=== PATIENT | male | born 1955 | race Caucasian/White ===

== ENCOUNTER 2022-08-09 02:54 | Inpatient (IN) | payer OTHER, MEDICAID ==
[~2022-08-09] VITALS: Ht 188 cm; Wt 86.2 kg
--- NOTE | 2022-08-09 02:55 | NUR ---
SEAN BEARDS TO BED #9
[2022-08-09 03:03] VITALS: BP 110/70
--- NOTE | 2022-08-09 03:08 | NUR ---
Pt SEAN S Care run #[id number], coming from home due to c/o upper body pain 06/05 that started today. Pt states he ran out of his oxycodone medication. No trauma. Pain started abruptly. Pt is A&Ox4. Skin intact. VSS. pupils PERRLA. No sob. Denies n/v. Has hx of Cancer and Hypothyroidism. Uses wheelchair at home. Bed in lowest position.
--- NOTE | 2022-08-09 03:15 | NUR ---
Dr. Tobar at bedside examining pt.
[2022-08-09] MEDS ORDERED: HYDROmorphone PFS 2 MG/ML SYR IVP ONE (03:25)
--- NOTE | 2022-08-09 03:30 | NUR ---
[address]
--- NOTE | 2022-08-09 03:48 | NUR ---
#20g IV placed on right wrist with no infiltration noted. 10cc flushed. Saline lock.
--- NOTE | 2022-08-09 03:48 | NUR ---
Covid swab done and blood work collected. Sent to lab.
[2022-08-09 03:57] LABS: BASOPHILS # (AUTO) 0.1 K/uL (0.00-0.22); BASOPHILS % (AUTO) 0.6 % (0.0-2.0); EOSINOPHILS # (AUTO) 0.2 K/uL (0-0.4); EOSINOPHILS % (AUTO) 2.5 % (0.0-4.0); HEMATOCRIT 34.9 % (36-52); HEMOGLOBIN 11.3 g/dL (12.0-18.0); LYMPHOCYTES # (AUTO) 0.7 K/uL (2.0-11.5); LYMPHOCYTES % (AUTO) 8.4 % (20.5-51.1); MEAN CORPUSCULAR HEMOGLOBIN 25 pg (27-31); MEAN CORPUSCULAR HGB CONC 32 g/dL (33-37); MEAN CORPUSCULAR VOLUME 77.6 fL (80-94); MONOCYTES # (AUTO) 0.7 K/uL (0.8-1.0); MONOCYTES % (AUTO) 7.7 % (1.7-9.3); NEUTROPHILS # (AUTO) 6.8 K/uL (1.8-7.7); NEUTROPHILS % (AUTO) 80.8 % (42.2-75.2); PLATELET COUNT (AUTO) 519 K/uL (140-450); RED BLOOD CELL COUNT(AUTO) 4.49 MIL/uL (4.20-6.10); RED CELL DISTRIBUTION WIDTH 17.8 % (11.6-13.7); WHITE BLOOD COUNT (AUTO) 8.4 K/uL (4.8-10.8)
[2022-08-09 04:26] LABS: ALBUMIN 2.8 g/dL (3.4-5.0); ANION GAP 13.1 (8-16); CARBON DIOXIDE 24.9 mmol/L (21-32); CREATININE 0.7 mg/dL (0.6-1.3); TOTAL BILIRUBIN 0.7 mg/dL (0.0-1.0)
--- NOTE | 2022-08-09 04:39 | NUR ---
Pt in bed resting with no s/s of distress. Pt states he has no more pain at the moment. A&Ox4. VSS.
[2022-08-09] MEDS ORDERED: MONT10TA35 PO (07:15)
[2022-08-09] MEDS ORDERED: LEVO25CA2 PO (07:15)
[2022-08-09] MEDS ORDERED: METH1TAB PO (07:15)
[2022-08-09] MEDS ORDERED: DEC4 PO (07:15)
[2022-08-09] MEDS ORDERED: ACYC400T14 PO (07:15)
[2022-08-09] MEDS ORDERED: FLUO10CA21 PO (07:15)
[2022-08-09] MEDS ORDERED: GABA100C PO (07:15)
--- NOTE | 2022-08-09 07:15 | NUR ---
Medication Reconciliation completed provided by family.
--- NOTE | 2022-08-09 07:16 | NUR ---
Received report from TAM Herr. Assumed care at this time.
[2022-08-09] MEDS ORDERED: ACETAMINOPHEN 325 MG TAB PO PRN (10:00)
[2022-08-09] MEDS ORDERED: ZOLPIDEM 5 MG TAB PO PRN (10:00)
[2022-08-09] MEDS ORDERED: DOCUSATE SODIUM 100 MG GELCAP PO PRN (10:00)
[2022-08-09] MEDS ORDERED: guaiFENesin DM 200/20 MG-10 ML 10 ML UDC PO PRN (10:00)
[2022-08-09] MEDS ORDERED: POTASSIUM CHLORIDE 10 MEQ TABER PO PRN (10:00)
[2022-08-09] MEDS ORDERED: ONDANSETRON 4 MG/2 ML VIAL IM/IVP PRN (10:00)
--- NOTE | 2022-08-09 10:07 | NUR ---
Patient will be admitted to care of DR VALENTINE. Admited to Med/Surg. Will go to room 105B. Belongings list completed. Report to TAM LANDAVERDE.
[2022-08-09 10:25] VITALS: BP 136/73
--- NOTE | 2022-08-09 10:25 | NUR ---
RECEIVED PT FROM MEAT STOCKER, PT IS AWAKE, ALERT AND ORIENTED, IV LINE NOTED ON THE RIGHT HAND G. 20 ON SALINE LOCK, PT IS ON O2 2L NC, SUPRAPUBIC CATHETER AND COLOSTOMY WERE IN PLACE, NO SIGN OF DISTRESS NOTED AND WILL CONTINUE TO MONITOR PT.
--- NOTE | 2022-08-09 10:40 | NUR ---
MRSA SWAB DONE TO PT NOW AND SAMPLE WAS SENT TO LAB
--- NOTE | 2022-08-09 11:00 | NUR ---
RIGHT UPPER CHEST PORT-A-CATH IS IN PLACE.
[2022-08-09] MEDS: DEXT 5% /NACL 0.9% 1,000 ML IV SCH ×3 (11:04→23:20)
[2022-08-09 11:22] LABS: PROTHROMBIN TIME 12.2 secs (10.8-13.4)
[2022-08-09 11:28] LABS: AMYLASE 37 U/L (25-115); CHOL/HDL RATIO 5.4 (1-4.5); HDL CHOLESTEROL 37 mg/dL (40-60); LDL (CALC) 132 mg/dL (60-100); LIPASE 48 U/L (73-393); MAGNESIUM 1.8 mg/dL (1.8-2.4); PHOSPHORUS 3.1 mg/dL (2.5-4.9); THYROID STIMULATING HORMONE 3.64 uIU/mL (0.34-3.74); TRIGLYCERIDES 147 mg/dL (30-150)
[2022-08-09] MEDS: MORPHINE SULFATE 2 MG/ML SYR IVP PRN ×2 (11:40→18:29)
--- NOTE | 2022-08-09 14:00 | NUR ---
PT IS RESTING NOW, NO SIGN OF DISTRESS NOTED.
[2022-08-09] MEDS: HYDROcodone/APAP 7.5/325 MG 1 TAB PO PRN ×2 (15:38→22:29)
--- NOTE | 2022-08-09 18:29 | NUR ---
PT WAS MEDICATED NOW FOR A PAIN RATE OF 9/10
--- NOTE | 2022-08-09 19:28 | NUR ---
ENDORSED PT TO NIGHT RN FOR CONTINUITY OF CARE, PT IS STABLE AT THIS TIME.
--- NOTE | 2022-08-09 19:30 | NUR ---
RECEIVED REPORT FROM DAY SHIFT NURSE VINNIE FOR CONTINUITY OF CARE. PATIENT IS A&O X4. PATIENT IS ON NC 3L. PATIENT'S IV IS A 20G RIGHT HAND; RUNNING D5NS 150. PATIENT IS SLEEPING, SITTING IN HIGH-FOWLERS POSITION. BED IS IN LOWEST POSITION, WHEELS LOCKED, CALL LIGHT IN PLACE. WILL CONTINUE TO OBSERVE PATIENT.
[2022-08-09 20:00] VITALS: BP 127/79
--- NOTE | 2022-08-09 22:35 | NUR ---
PATIENT CALLED AND REQUESTED NORCO FOR 6/10 PAIN. CHECKED PATIENT'S CHART, NORCO IS APPROPRIATE TO ADMINISTER. ADMINISTERED MEDICATION TO PATIENT. PATIENT TOLERATED WELL AND THANKED ME FOR THE MEDICATION. WILL CONTINUE TO OBSERVE PATIENT.
--- NOTE | 2022-08-10 00:30 | NUR ---
LOOKED IN ON PATIENT. PATIENT WAS SLEEPING, LYING IN HIGH-FOWLERS POSITION. BREATHING WAS NORMAL WITH SYMMETRICAL RISE AND FALL OF CHEST. WILL CONTINUE TO OBSERVE PATIENT.
[2022-08-10] MEDS: MORPHINE SULFATE 2 MG/ML SYR IVP PRN (01:57)
--- NOTE | 2022-08-10 02:00 | NUR ---
PATIENT CALLED AND REQUESTED MORPHINE FOR 9/10 PAIN. OBTAINED PATIENT'S VITALS: BP WAS 141/84, HR 89. CHECKED PATIENT'S CHART; MORPHINE WAS APPROPRIATE TO ADMINISTER. ADMINISTERED MEDICATION, PATIENT TOLERATED WELL. CHECKED PATIENT'S CATHETER BAG (SMALL BAG STRAPPED TO HIS RIGHT LEG); EMPTIED BAG OF 500 ML OF URINE. PATIENT TOLERATED WELL. WILL CONTINUE TO OBSERVE PATIENT.
[2022-08-10 04:00] VITALS: BP 138/97
--- NOTE | 2022-08-10 04:10 | NUR ---
CHANGED OUT PATIENT'S CATHETER BAG STRAPPED TO HIS RIGHT LEG TO A BIG CATHETER BAG HANGING AT PATIENT'S BEDSIDE BELOW PATIENT. CHANGED OUT PATIENT'S COLOSTOMY BAG. OLD COLOSTOMY BAG HAD SOLID, HARD STOOL. PATIENT TOLERATED CHANGE WELL. OLD CATHETER BAG AND OLD COLOSTOMY BAG WERE PLACE IN BIOHAZARD BAG. PATIENT'S BREATHING IS NORMAL WITH SYMMETRICAL RISE AND FALL OF CHEST. WILL CONTINUE TO OBSERVE PATIENT.
[2022-08-10] MEDS: HYDROcodone/APAP 7.5/325 MG 1 TAB PO PRN ×5 (04:52→21:10)
--- NOTE | 2022-08-10 05:00 | NUR ---
PATIENT CALLED AND REQUESTED NORCO FOR PATIENT. PATIENT'S BP WAS 138/97 AND HR WAS 90. CHECKED CHART, NORCO WAS APPROPRIATE TO ADMINISTER. ADMINISTERED NORCO TO PATIENT. PATIENT TOLERATED WELL. PATIENT'S BREATHING IS NORMAL WITH SYMMETRICAL RISE AND FALL OF CHEST. IV IS RUNNING D5NS AT 150. WILL CONTINUE TO OBSERVE PATIENT.
[2022-08-10] MEDS: DEXT 5% /NACL 0.9% 1,000 ML IV SCH ×4 (06:00→23:22)
[2022-08-10 06:36] LABS: BASOPHILS % (AUTO) 0.2 % (0.0-2.0); EOSINOPHILS # (AUTO) 0.2 K/uL (0-0.4); HEMATOCRIT 35.3 % (36-52); HEMOGLOBIN 11.4 g/dL (12.0-18.0); LYMPHOCYTES # (AUTO) 0.6 K/uL (2.0-11.5); LYMPHOCYTES % (AUTO) 7.4 % (20.5-51.1); MEAN CORPUSCULAR HEMOGLOBIN 25 pg (27-31); MEAN CORPUSCULAR HGB CONC 32 g/dL (33-37); MEAN CORPUSCULAR VOLUME 77.5 fL (80-94); MONOCYTES # (AUTO) 0.5 K/uL (0.8-1.0); MONOCYTES % (AUTO) 6.6 % (1.7-9.3); NEUTROPHILS # (AUTO) 6.4 K/uL (1.8-7.7); NEUTROPHILS % (AUTO) 83.8 % (42.2-75.2); PLATELET COUNT (AUTO) 515 K/uL (140-450); RED BLOOD CELL COUNT(AUTO) 4.56 MIL/uL (4.20-6.10); RED CELL DISTRIBUTION WIDTH 17.7 % (11.6-13.7); WHITE BLOOD COUNT (AUTO) 7.6 K/uL (4.8-10.8)
--- NOTE | 2022-08-10 07:00 | NUR ---
OBTAINED URINE SAMPLE FROM PATIENT FOR URINE ANALYSIS. PATIENT'S BREATHING IS NORMAL WITH SYMMETRICAL RISE AND FALL OF CHEST. WILL CONTINUE TO OBSERVE PATIENT.
--- NOTE | 2022-08-10 07:11 | NUR ---
ASSUMED CONTINUITY OF CARE. A & O X4. WATCHING TV AT THIS TIME. KEEP COMFORTABLE ON BED. EXPLAINED DIAGNOSIS, PLAN OF CARE, PAIN MANAGEMENT TEACHING, USE OF CALL LIGHT/BED/TV/BATHROOM. VERBALIZED UNDERSTANDING. FALL PRECAUTION APPLIED. CALL LIGHT WITHIN REACH.
[2022-08-10 07:26] LABS: ANION GAP 13.8 (8-16); CARBON DIOXIDE 24.1 mmol/L (21-32); CREATININE 0.6 mg/dL (0.6-1.3); POTASSIUM 3.9 mmol/L (3.5-5.1)
--- NOTE | 2022-08-10 07:30 | NUR ---
ENDORSED TO DAY SHIFT NURSE TAMIKA FOR CONTINUITY OF CARE. PATIENT IS STABLE.
[2022-08-10 07:50] LABS: APPEARANCE,URINE CLEAR (CLEAR); BILIRUBIN,URINE NEGATIVE (NEGATIVE); BLOOD, URINE 3+ (NEGATIVE); COLOR,URINE YELLOW (YELLOW); LEUKOCYTE ESTERASE ,URINE 1+ (NEGATIVE); NITRITE, URINE POSITIVE (NEGATIVE); UGLUCOSE NEGATIVE (NEGATIVE)
[2022-08-10 08:00] VITALS: BP 139/89
[2022-08-10 08:07] LABS: T4 (THYROXINE) 7.9 ug/dL (4.5-12.0)
[2022-08-10 08:12] LABS: RBC,URINE 50-80 /HPF (0-5); WBC,URINE 60-80 /HPF (0-5)
--- NOTE | 2022-08-10 08:54 | NUR ---
GUERO COLLIER CAME AND SPOKE TO PT. AT BEDSIDE.
[2022-08-10] MEDS: PANTOPRAZOLE 40 MG TABEC PO SCH (08:55)
--- NOTE | 2022-08-10 10:56 | NUR ---
Patient's Plan of Care was discussed and reviewed with C PROGRAMMER:
--- NOTE | 2022-08-10 11:00 | NUR ---
INSERTED NEW IV ACCESS ON RIGHT HAND GAUGE #22. TOLERATED WELL. D/C IV ON RIGHT WRIST GAUGE #22.
--- NOTE | 2022-08-10 11:08 | NUR ---
PATIENT HAS BEEN SCREENED AND CATEGORIZED MODERATE NUTRITION RISK. PATIENT WILL BE SEEN WITHIN 3-5 DAYS OF ADMISSION. 08/12/2212/19/[address] BY PAYAM REED RD
--- NOTE | 2022-08-10 13:07 | NUR ---
MEDICATED PT WITH PRN NORCO FOR ABDOMINAL PAIN 03/05. PT REFUSED MORPHINE STATING IT DOES NOT WORK WELL.
--- NOTE | 2022-08-10 15:11 | NUR ---
DISCHARGE PLANNING: PATIENT IS A 67 YEAR OLD MALE ADMITTED TO THE [facility]/ED ON 08/09/2022 DUE TO INTRACTABLE PAIN. SW MEET WITH PATIENT AT BEDSIDE TO DISCUSS AND GATHER HIS COLLATERAL INFORMATION DURING THE MEETING PATIENT WAS AWAKE AND ALERT ABLE TO PROVIDE ALL HIS INFORMATION. PATIENT REPORTED LIVING WITH HIS MOTHER AT HER HOME IN [facility]. PER PATIENT HE HAS ADVANCE DIRECTIVES IN PLACE WITH HIS SISTER MORE HIS EMERGENCY CONTACT AND MEDICAL DECISION MAKER. THEREFORE; PATIENT DECLINED INF. FORMS PROVIDED BY [facility]. PER PATIENT HE HAS PCP DR. PEPE CHACON WITH WHO HE HAS A GOOD RELATIONSHIP. PATIENT REPORTED THAT HIS LAS VISIT WITH PCP WAS ABOUT 2 MONTHS AND HE WILL MAKE HIS OWN APPOINTMENT WHEN HE IS READY AND STABLE TO DISCHARGED. PATIENT REPORTED THAT HE HAS NO ISSUES GETTING OR TAKING MEDICATIONS; REPORTED THAT HE HAS THE [facility] IN [facility] IN [facility]. SEND HIS AND HIS MOTHER'S MEDICATIONS TO THE HOME. PER PATIENT HE HAS A CANE, A WALKER, A LIFT, WHEELCHAIR AND 02 HIS DME AT HOME FOR HIM AND HIS ALMOST 100YEAR OLD MOTHER. PER PATIENT HE HAS A PRIVATE CAREGIVER THAT IS PAYING TO COME AND ASSIST THEM WITH THEIR NEEDS. PER PATIENT HAS ALREADY APPLY TO [facility] AND IS WAITING ON HIS PENDING APPLICATION TO SEE IF THEY CAN GET ANOTHER CAREGIVER TO ASSIST THEM AT HOME WITH HIS MOTHER. PER PATIENT HE WANTS TO GO BACK HOME WHEN HE IS READY AND STABLE TO DISCHARGE. PER PATIENT HE WANTS TO GO HOME BUT IS OPEN FOR MD RECOMMENDATIONS IF IS TO SNF PATIENT PREFERS TO GO TO [facility] AND [facility]. SW THANKED PATIENT FOR HIS INFORMATION. MANDY/CM WILL FOLLOW UP NEEDED.
[2022-08-10 16:00] VITALS: BP 143/82
--- NOTE | 2022-08-10 19:10 | NUR ---
BEDSIDE REPORT GIVEN TO NIGHTSHIFT NURSE. IN STABLE CONDITION.
--- NOTE | 2022-08-10 19:15 | NUR ---
RECEIVED REPORT FROM DAY NURSE FOR CONTINUITY OF CARE. RECEIVED PATIENT LYING ON THE BED, IS ALERT AND ORIENTED. CALL LIGHT WITHIN REACH.
--- NOTE | 2022-08-10 21:10 | NUR ---
PATIENT C/O 6/10 GENERALIZED PAIN, PRN PAIN MEDICATION GIVEN ORDERED. CALL LIGHT WITHIN REACH. WILL CONTINUE TO MONITOR THE PATIENT.
--- NOTE | 2022-08-10 21:19 | NUR ---
PATIENT IS ON 3LPM NC, NO SIGNS OF DISTRESS NOTED, PATIENT HAS SUPRA PUBIC CATHETER DRAINING YELLOW COLORED URINE TO BAG, PATIENT HAS COLOSTOMY ON LLQ, BAG EMPTY AT THIS TIME. CALL LIGHT WITHIN REACH. BED IN LOW AND LOCKED POSITION.
--- NOTE | 2022-08-10 22:10 | NUR ---
REASSESSED PATIENT AFTER GIVEN PRN PAIN MEDICATION, PATIENT STATED 3/10 PAIN FROM 6/10 PAIN. PATIENT HAS RIGHT HAND G22 IV ACCESS SITE, RUNNING D5 AND NS 0.9% @150ML/HR, LINE PATENT. CALL LIGHT WITHIN REACH. WILL CONTINUE TO MONITOR THE PATIENT.
[2022-08-11] MEDS: MORPHINE SULFATE 2 MG/ML SYR IVP PRN (01:34)
--- NOTE | 2022-08-11 01:34 | NUR ---
PATIENT C/O 9/10 GENERALIZED PAIN, BP 137/75, GIVEN PRN MORPHINE ORDERED.
[2022-08-11 04:00] VITALS: BP 144/80
--- NOTE | 2022-08-11 04:10 | NUR ---
PATIENT IS AWAKE, NO C/O PAIN AT THIS TIME, ON O2 @3LPM NC, NO SIGNS OF DISTRESS NOTED. VITALS T 97.1, P 81, BP 144/80, RESP 18 AND O2 KYLE 97% ON 3LPM NC. SUPRAPUBIC CATHETER HAS 850ML OUTPUT OF YELLOW URINE, COLOSTOMY BAG EMPTY AT THIS TIME. CALL LIGHT IS WITHIN REACH, SAFETY PRECAUTIONS IN PLACE. WILL CONTINUE TO MONITOR THE PATIENT.
[2022-08-11] MEDS: HYDROcodone/APAP 7.5/325 MG 1 TAB PO PRN ×2 (05:43→11:53)
--- NOTE | 2022-08-11 05:43 | NUR ---
PATIENT C/O 6/10 GENERALIZED PAIN, GIVEN NORCO 7.5/325MG ORDERED. NEEDS ATTENDED THROUGHOUT THE SHIFT. CALL LIGHT WITHIN REACH. SAFETY PRECAUTIONS IN PLACE.
[2022-08-11 07:20] LABS: BASOPHILS % (AUTO) 0.4 % (0.0-2.0); EOSINOPHILS # (AUTO) 0.2 K/uL (0-0.4); EOSINOPHILS % (AUTO) 2.6 % (0.0-4.0); HEMATOCRIT 31.4 % (36-52); HEMOGLOBIN 10.1 g/dL (12.0-18.0); LYMPHOCYTES # (AUTO) 0.6 K/uL (2.0-11.5); LYMPHOCYTES % (AUTO) 7.9 % (20.5-51.1); MEAN CORPUSCULAR HEMOGLOBIN 25 pg (27-31); MEAN CORPUSCULAR HGB CONC 32 g/dL (33-37); MEAN CORPUSCULAR VOLUME 77.9 fL (80-94); MONOCYTES # (AUTO) 0.6 K/uL (0.8-1.0); NEUTROPHILS # (AUTO) 5.6 K/uL (1.8-7.7); NEUTROPHILS % (AUTO) 80.1 % (42.2-75.2); PLATELET COUNT (AUTO) 466 K/uL (140-450); RED BLOOD CELL COUNT(AUTO) 4.04 MIL/uL (4.20-6.10); RED CELL DISTRIBUTION WIDTH 17.2 % (11.6-13.7); WHITE BLOOD COUNT (AUTO) 6.9 K/uL (4.8-10.8)
--- NOTE | 2022-08-11 07:21 | NUR ---
ENDORSED PATIENT TO DAY NURSE FOR CONTINUITY OF CARE. PATIENT IS STABLE.
--- NOTE | 2022-08-11 07:22 | NUR ---
RECEIVED REPORT FROM VENDING MACHINE COIN COLLECTOR NURSE GERDA FOR CONTINUITY OF CARE. PT SLEEPING, EASILY AROUSABLE BY VERBAL STIMULI. RESPIRATIONS EVEN AND UNLABORED ON 3L NC. WITH COLOSTOMY BAG ON LLQ, INTACT. WITH SUPRAPUBIC CATHETER, INTACT AND DRAINING URINE WELL. IV SITE ON RIGHT HAND G22, INFUSING IVF. CALL LIGHT WITHIN REACH. SAFETY PRECAUTIONS IN PLACE.
[2022-08-11] MEDS: DEXT 5% /NACL 0.9% 1,000 ML IV SCH ×2 (07:26→15:20)
--- NOTE | 2022-08-11 07:30 | NUR ---
POC DISCUSSED WITH TAM LWE.
[2022-08-11] MEDS ORDERED: CEPH-588 PO (07:59)
[2022-08-11] MEDS ORDERED: ACET-512 PO (07:59)
[2022-08-11 08:01] LABS: ANION GAP 12.3 (8-16); CARBON DIOXIDE 23.6 mmol/L (21-32); CREATININE 0.5 mg/dL (0.6-1.3); POTASSIUM 3.9 mmol/L (3.5-5.1)
[2022-08-11] MEDS: PANTOPRAZOLE 40 MG TABEC PO SCH (08:42)
--- NOTE | 2022-08-11 08:46 | NUR ---
ADMINISTERED DUE MEDS. PT TEACHING ABOUT MEDS GIVEN. PT VERBALIZED UNDERSTANDING.
--- NOTE | 2022-08-11 09:52 | NUR ---
PT WAS FED BY THE LINEN WORKER AND PER LINEN WORKER PT VOMITED. PT REQUESTED FOR N&V MED. PRN IVP MED ADMINISTERED BY TAM LEW.
--- NOTE | 2022-08-11 10:32 | NUR ---
DC PAPERS DISCUSSED WITH THE PT. INFORMED PT THAT PER MD NOTES, HE HAS AN APPT WITH [facility] WITH HIS ONCOLOGIST. PT STATED HE'LL CALL SOMEBODY TO HIM UP.
[2022-08-11 10:39] VITALS: BP 140/78
--- NOTE | 2022-08-11 11:53 | NUR ---
PT COMPLAINED OF GENERALIZED PAIN 02/03. PRN PAIN MED ADMINISTERED MD ORDERED.
--- NOTE | 2022-08-11 15:29 | NUR ---
CLEANED AND CHANGED PT CLOTHES TO HOME CLOTHES WITH [employer] PHARMACOLOGY TECHNICIAN. DISCHARGE PAPERS DISCUSSED WITH THE PT. PT VERBALIZED UNDERSTANDING. PT COMFORTABLY SITTING IN BED WITH NO ACUTE DISTRESS NOTED. PT AWAITING FOR PICK-UP.
[2022-08-11 16:00] VITALS: BP 138/92
--- NOTE | 2022-08-11 16:30 | NUR ---
PT PICKED-UP BY HIS HELPER/TOE SEWER AMIRA. PT WHEELED TO FRONT LOBBY BY [facility] [place] [facility] AND AMIRA. REMOVED IV CATHETER TIP INTACT. REMOVED ID WRIST BAND. ALL BELONGINGS TAKEN UPON DC. PT IS STABLE. PT D/C HOME.
== END 2022-08-11 16:46 | disposition home or self-care (01) | DRG 947 ==
LOC: MED 02:54 → MTU 08:44
PROVIDERS: ADMIT Family Medicine; ATTEND Family Medicine
DX: G89.3 Neoplasm related pain (acute) (chronic) (principal); E43 Unspecified severe protein-calorie malnutrition; C79.51 Secondary malignant neoplasm of bone; N39.0 Urinary tract infection, site not specified; C34.90 Malignant neoplasm of unspecified part of unspecified bronchus or lung; C78.7 Secondary malignant neoplasm of liver and intrahepatic bile duct; C78.5 Secondary malignant neoplasm of large intestine and rectum; D63.8 Anemia in other chronic diseases classified elsewhere; Z20.822 Contact with and (suspected) exposure to COVID-19; F90.9 Attention-deficit hyperactivity disorder, unspecified type; E03.9 Hypothyroidism, unspecified; F41.9 Anxiety disorder, unspecified; R74.01 Elevation of levels of liver transaminase levels; Z68.24 Body mass index [BMI] 24.0-24.9, adult; Z93.3 Colostomy status
CPT/HCPCS: 36415; 71045; 71250; 80048; 80053; 81001; 82150; 83036; 83690; 83735; 83880; 84100; 84436; 84439; 84443; 84479; 84484; 85025; 85610; 85730; 87081; 87086; 96374; 99285; J0696; J1170; J2270; J2405; J7060